=== PATIENT | male | born 1960 | race Caucasian/White ===

== ENCOUNTER 2024-08-02 08:19 | Outpatient (CLI) | payer MEDICARE ==
[2024-08-02 09:28] LABS: #Basophils 0.03 10x3/uL (0.0-0.2); #Eosinophils 0.17 10x3/uL (0.0-0.5); #Monocytes 0.52 10x3/uL (0.0-1.1); #Neutrophils 2.97 10x3/uL (1.5-8.4); %Basophils 0.6 % (0.0-2.0); %Eosinophils 3.3 % (0.0-6.0); %Lymphocytes 28.4 % (18.0-47.0); %Neutrophils 57.3 % (40.0-75.0); Hematocrit 45.6 % (38.8-50.0); Hemoglobin 15.3 g/dL (13.5-17.5); Mean Corpuscular HGB CONC 33.6 g/dL (32.0-36.0); Mean Corpuscular Hemoglobin 30.2 pg (27.0-33.0); Mean Corpuscular Volume 89.9 fL (81.2-95.1); Mean Platelet Volume 8.8 fL (7.4-10.4); Platelet Count 243 10x3/uL (150-450); RBC Distribution Width 13.2 % (11.5-14.5); Red Blood Cell (RBC) Count 5.07 10x6/uL (4.32-5.72); White Blood Cell (WBC) Count 5.18 10x3/uL (3.5-10.5)
[2024-08-02 09:44] LABS: ALT (SGPT) 30 U/L (Less than 45); AST (SGOT) 22 U/L (11-34); Albumin 4.4 g/dL (3.1-4.5); Alkaline Phosphatase 80 U/L (40-110); Anion Gap 12 mmol/L (10-20); BUN (Urea Nitrogen) 10 mg/dL (8.4-25.7); Bilirubin, Direct 0.2 mg/dL (0.1-0.3); Bilirubin, Total 0.6 mg/dL (0.3-1.2); Calc. Creatinine Clearance 0 mL/min (70-130); Calcium 9.2 mg/dL (7.8-10.44); Carbon Dioxide 24 mmol/L (23-31); Chloride 107 mmol/L (98-107); Estimated GFR 102; Glucose 112 mg/dL (80-115); Sodium 139 mmol/L (136-145)
== END 2024-08-02 08:20 | disposition home or self-care (01) ==
LOC: CSHLAB 08:19
PROVIDERS: ATTEND Surgery
DX: Z01.818 Encounter for other preprocedural examination (principal); K43.9 Ventral hernia without obstruction or gangrene
CPT/HCPCS: 80048; 80076; 85025; 93005; 93010

== ENCOUNTER 2024-08-07 05:57 | Day surgery (SDC) | payer MEDICARE ==
[2024-08-02 09:01] VITALS: BMI 26.4
[2024-08-07] MEDS ORDERED: Bupivacaine/Epinephrine 0.25% 30 ML VIAL ONE (06:41)
[2024-08-07] MEDS ORDERED: CEFAZOLIN 2 GM VIAL ONE (07:05)
[2024-08-07] MEDS ORDERED: Rocuronium Bromide 10 MG/ML (10ML VIAL) ONE (07:11)
[2024-08-07] MEDS ORDERED: Lidocaine 1% PF 5 ML VIAL ONE (07:11)
[2024-08-07] MEDS ORDERED: PROPOFOL 20 ML ONE (07:11)
[2024-08-07] MEDS ORDERED: fentaNYL 50 mcg/mL 1 mL Vial ONE ×2 (07:11→08:56)
[2024-08-07] MEDS ORDERED: Dexamethasone 20 MG/5 ML VIAL ONE (07:37)
[2024-08-07] MEDS ORDERED: Ondansetron PF 4 MG/2 ML Vial ONE (07:37)
[2024-08-07] MEDS ORDERED: SUGAMMADEX SODIUM 200 MG/2 ML VIAL ONE (08:25)
[2024-08-07] MEDS ORDERED: Sterile Water 10 ML ONE (08:35)
[2024-08-07] MEDS ORDERED: HYDROcodone/Acetaminophen 5/325 mg Tablet ONE (09:25)
== END 2024-08-07 10:00 | disposition home or self-care (01) ==
LOC: CSHSDC 05:57
PROVIDERS: ATTEND Surgery
PROC: 0YU54JZ Supplement Right Inguinal Region with Synthetic Substitute, Percutaneous Endoscopic Approach (ICD-10-PCS; principal; 2024-08-07)
DX: K40.90 Unilateral inguinal hernia, without obstruction or gangrene, not specified as recurrent (principal); K43.9 Ventral hernia without obstruction or gangrene; I10 Essential (primary) hypertension; E78.5 Hyperlipidemia, unspecified; E55.9 Vitamin D deficiency, unspecified; Z79.899 Other long term (current) drug therapy; Z98.890 Other specified postprocedural states
CPT/HCPCS: 49650; J1100; J2405; J2704; J3010; C1781; S2900